=== PATIENT | male | born 1950 | race Caucasian/White ===

== ENCOUNTER → 2016-03-11 | Outpatient (CLI) | payer MEDICARE, OTHER ==
[~2016-03-11] MED LIST: ALLP100T PO; ATN25T; CYCL10TA45 PO; FURO40TA4 PO; GLIM4TAB PO; HYDR-3702 PO; METF500T PO; METO25TA60 PO; NFLOSA25TA; NFLOSA25TA PO; OMEP10CA4 PO; OMEP20CA6; SIMV40TA2 PO
--- NOTE | 2016-03-12 07:45 | Diagnostic Imaging Report ---
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 New onset pain. TECHNIQUE: 2 views of the right knee. CORRELATION STUDY: 01/14/2016 FINDINGS: There are postop changes of a right total knee arthroplasty. Hardware is intact. No acute bony abnormality or bette bony destructive type change. There does appear to be generalized soft tissue edema. No suggestion for abnormal gas collections. IMPRESSION: 1. Postop change right total knee arthroscopy. Negative for acute bony abnormality otherwise. Generalized soft tissue edema. Dictated by: Dictated on workstation # [id number]
== END ==
LOC: RAD 17:35
PROVIDERS: ATTEND Orthopaedic Surgery
DX: Z98.890 Other specified postprocedural states (principal); Z96.651 Presence of right artificial knee joint
CPT/HCPCS: 73560

== ENCOUNTER 2016-04-03 17:32 | Emergency (ER) | payer MEDICARE, OTHER ==
[~2016-04-03] VITALS: Ht 170.2 cm; Wt 125.0 kg
[2016-04-03 17:46] VITALS: BP 142/67
[2016-04-03 19:01] LABS: INFLUENZA VIRUS TYPE A ANTIBOD Negative (NEGATIVE); INFLUENZA VIRUS TYPE B ANTIBOD Negative (NEGATIVE)
== END 2016-04-03 19:37 | disposition home or self-care (01) ==
LOC: ED 17:33
DX: B34.9 Viral infection, unspecified (principal); R50.81 Fever presenting with conditions classified elsewhere
CPT/HCPCS: 87502; 99282

== ENCOUNTER → 2016-05-18 | Outpatient (REF) | payer MEDICARE ==
[2016-05-18 10:44] LABS: ALBUMIN 4.4 g/dL (3.4-5.0); ANION GAP 16.3 MEQ/L (3-15); CALCULATED IONIZED CALCIUM 4.3 mg/dL (3.8-4.6); TOTAL PROTEIN 7.5 g/dL (6.4-8.5)
[2016-05-18 14:50] LABS: BASOPHILS % (AUTO) 0 % (0-2); EOSINOPHILS # (AUTO) 0.2 10^3uL; EOSINOPHILS % (AUTO) 3 % (0-4); LYMPHOCYTES # (AUTO) 1.6 X10^3; MEAN CORPUSCULAR HGB CONC 32.5 g/dL (31.0-37.0); MEAN CORPUSCULAR VOLUME 86 FL (80-100); MEAN PLATELET VOLUME 12.1 FL (6.0-9.5); MONOCYTES # (AUTO) 0.8 X10^3; MONOCYTES % (AUTO) 10 % (3-11); NEUTROPHILS # (AUTO) 5.4 X10^3; NEUTROPHILS % (AUTO) 67 % (51-67); PLATELET COUNT 238 10^3uL (150-450); WHITE BLOOD COUNT 8.04 10^3uL (4.0-11.0)
== END ==
LOC: LAB 09:43
PROVIDERS: ATTEND Family Medicine
DX: I50.22 Chronic systolic (congestive) heart failure (principal); E11.9 Type 2 diabetes mellitus without complications; I10 Essential (primary) hypertension; N40.1 Benign prostatic hyperplasia with lower urinary tract symptoms
CPT/HCPCS: 80053; 83036; 85025

== ENCOUNTER 2016-05-25 06:26 | Day surgery (SDC) | payer MEDICARE, OTHER ==
[~2016-05-25] VITALS: Ht 170.2 cm; Wt 122.3 kg
[~2016-05-25 06:26] MED LIST changes: -ALLP100T PO; -ATN25T; -CYCL10TA45 PO; -FURO40TA4 PO; -GLIM4TAB PO; -HYDR-3702 PO; +LACTATED RINGERS 1,000 ML IV SCH; -METF500T PO; -METO25TA60 PO; -NFLOSA25TA; -NFLOSA25TA PO; -OMEP10CA4 PO; -OMEP20CA6; -SIMV40TA2 PO; +SODIUM CHLORIDE FLUSH 3 ML SYR IV PRN
[2016-05-25 06:35] VITALS: BP 117/50
[2016-05-25] MEDS ORDERED: MIDAZOLAM 2 MG/2 ML (VERSED) VIAL ONE (07:03)
[2016-05-25] MEDS ORDERED: ALFENTANIL 500 MCG/ML (ALFENTA) 5 ML AMP IV ONE (07:03)
[2016-05-25] MEDS ORDERED: PROPOFOL 20 ML IV ONE ×2 (07:03)
[2016-05-25 08:01] VITALS: BP 111/39
[2016-05-25 08:20] VITALS: BP 120/63
== END 2016-05-25 08:28 | disposition home or self-care (01) ==
LOC: ASC 06:26
PROVIDERS: ATTEND Family Medicine
DX: Z12.11 Encounter for screening for malignant neoplasm of colon (principal); I11.0 Hypertensive heart disease with heart failure; I50.22 Chronic systolic (congestive) heart failure; E11.9 Type 2 diabetes mellitus without complications; N40.1 Benign prostatic hyperplasia with lower urinary tract symptoms; R35.1 Nocturia; E78.5 Hyperlipidemia, unspecified; E66.01 Morbid (severe) obesity due to excess calories; Z68.41 Body mass index [BMI] 40.0-44.9, adult; Z80.42 Family history of malignant neoplasm of prostate; Z79.84 Long term (current) use of oral hypoglycemic drugs
CPT/HCPCS: 36415; 84132; G0121; J2250; J7120